=== PATIENT | female | born 1995 | race African-American/Black ===

== ENCOUNTER 2022-06-27 14:50 | Emergency (ER) | payer OTHER, BC ==
[~2022-06-27] VITALS: Ht 170.2 cm; Wt 59.0 kg
[2022-06-27 15:13] VITALS: BP 150/100
[2022-06-27] MEDS ORDERED: HYDROCO/APAP1 TA9 PO (16:02)
== END 2022-06-27 16:25 | disposition home or self-care (01) | DRG 563 ==
LOC: ED 14:50
PROC: 2W3DX1Z Immobilization of Left Lower Arm using Splint (ICD-10-PCS; principal; 2022-06-27)
PROC: 0HQGXZZ Repair Left Hand Skin, External Approach (ICD-10-PCS; 2022-06-27)
DX: S52.592A Other fractures of lower end of left radius, initial encounter for closed fracture (principal); S61.217A Laceration without foreign body of left little finger without damage to nail, initial encounter; V43.52XA Car driver injured in collision with other type car in traffic accident, initial encounter